=== PATIENT | male | born 1985 | race African-American/Black ===

== ENCOUNTER 2019-03-05 00:33 | Emergency (ER) | payer SELFPAY ==
[~2019-03-05] VITALS: Ht 185.4 cm; Wt 100.0 kg
[2019-03-05] MEDS ORDERED: KETOROLAC 60MG/2ML VIAL IM ONE (02:45)
[2019-03-05 06:06] VITALS: BP 125/79
== END 2019-03-05 06:07 | disposition home or self-care (01) ==
LOC: ER 00:33
DX: S06.0X0A Concussion without loss of consciousness, initial encounter (principal); R51 Headache; V49.49XA Driver injured in collision with other motor vehicles in traffic accident, initial encounter; Y93.89 Activity, other specified; Y92.89 Other specified places as the place of occurrence of the external cause; Y99.8 Other external cause status
CPT/HCPCS: 70450; 72125; 96372; 99284; J1885